=== PATIENT | female | born 1990 | race Caucasian/White ===

== ENCOUNTER → 2024-06-23 11:29 | Outpatient (REF) | payer MEDICARE, OTHER, SELFPAY | LOC: HWRAD 11:29 | PROVIDERS: ATTENDING PHYSICIAN Internal Medicine Endocrinology, Diabetes & Metabolism; FAMILY PHYSICIAN Family Medicine; OTHER PHYSICIAN Psychiatry & Neurology Sleep Medicine | DX: M85.88 Other specified disorders of bone density and structure, other site (principal) | CPT/HCPCS: 77080 ==

== ENCOUNTER 2024-10-17 11:07 | Emergency (ER) | payer MEDICARE, OTHER, SELFPAY ==
[2024-10-17 11:22] VITALS: BP 154/98
[2024-10-17 12:02] LABS: % Basophils 0.6 % (0-2); % Eosinophils 0.7 % (0-6); % Immature Granulocytes 0.3 % (0-0.5); % Neutrophils 68.4 % (42.2-75.2); Absolute Eosinophils 0.1 10^3/uL (0-0.7); Absolute Lymphocytes 1.6 10^3/uL (1.2-3.4); Absolute Monocytes 0.4 10^3/uL (0.1-0.6); Absolute Neutrophils 4.6 10^3/uL (1.4-6.5); Hematocrit 40.5 % (37.0-47.0); Hemoglobin 13.1 g/dL (12.0-16.0); Mean Corp Hgb Conc. 32.3 g/dL (33.0-37.0); Mean Corpuscular Hgb 25.6 pg (27.0-31.0); Mean Corpuscular Volume 79.1 fL (81.0-99.0); Nucleated Red Blood Cells % 0 %; Platelet Count 239 10^3/uL (130-400); Red Blood Cell Count 5.12 10^6/uL (4.20-5.40); Red Cell Dist. Width 13.3 % (11.5-14.5); White Blood Cell Count 6.7 10^3/uL (4.8-10.8)
[2024-10-17 12:07] LABS: Urine Albumin 2+ (Neg - Trace); Urine Bilirubin Negative (Negative); Urine Color Yellow; Urine Glucose Negative (Negative); Urine Ketone Trace (Negative); Urine Leukocyte Trace (Negative); Urine Nitrite Negative (Negative); Urine Occult Blood 1+ (Negative); Urine Specific Gravity 1.015 (<1.030); Urine Urobilinogen Negative (Neg - 1+)
[2024-10-17 12:13] LABS: Urine Character Slightly Cloudy (Clear)
[2024-10-17 12:14] LABS: HCG, Serum Qualitative Screen Negative
[2024-10-17 12:20] LABS: ALT (SGPT) 24 U/L (0-35); AST (SGOT) 27 U/L (14-36); Albumin 4.9 g/dl (3.5-5.0); Alkaline Phosphatase 113 U/L (38-126); Blood Urea Nitrogen 11 mg/dl (7-17); Calcium 9.7 mg/dl (8.4-10.2); Carbon Dioxide 24 mmol/L (22-30); Chloride 102 mmol/L (98-107); Glucose 107 mg/dl (70-99); Sodium 140 mmol/L (135-145); Total Bilirubin 0.4 mg/dl (0.2-1.3); Total Protein 8.7 g/dl (6.3-8.2); eGFR > 60.00
[2024-10-17 12:35] LABS: Urine Amorphous Seen
[2024-10-17 12:36] LABS: Urine Hyaline Cast 0-2 /LPF (0-2)
[2024-10-17 12:37] LABS: Urine Red Blood Cell 0-2 /HPF (0-2); Urine White Cell 0-2 /HPF (0-5)
[2024-10-17 12:51] LABS: Lipase 118 U/L (23-300)
[2024-10-17 13:30] VITALS: BP 128/89
[2024-10-17] MEDS: NSS 1000 IV (14:33)
[2024-10-17] MEDS: ZOFRAN 4 MG IV (14:34)
[2024-10-17] MEDS: TORADOL 30 MG IV (14:34)
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
[2024-10-17] MEDS: FLOMAX 0.4 MG PO (17:04)
[2024-10-17 17:39] VITALS: BP 137/85
== END 2024-10-17 17:42 | disposition home or self-care (01) ==
LOC: EMR 11:07
PROVIDERS: Emergency Medicine; EMERGENCY PHYSICIAN Emergency Medicine; FAMILY PHYSICIAN Family Medicine
DX: N20.1 Calculus of ureter (principal); R10.32 Left lower quadrant pain; R11.2 Nausea with vomiting, unspecified; R31.29 Other microscopic hematuria; F79 Unspecified intellectual disabilities; G82.20 Paraplegia, unspecified; R56.9 Unspecified convulsions; G81.91 Hemiplegia, unspecified affecting right dominant side; Z87.820 Personal history of traumatic brain injury; Z87.442 Personal history of urinary calculi; Z88.8 Allergy status to other drugs, medicaments and biological substances; Z91.018 Allergy to other foods
CPT/HCPCS: 99284; 96374; 96375; 96361; 74176; 80053; 81003; 81015; 83690; 84703; 85025

== ENCOUNTER 2025-08-19 12:25 | Emergency (ER) | payer MEDICARE, OTHER, SELFPAY ==
[2025-08-19 12:31] VITALS: BP 147/100
[2025-08-19 15:49] VITALS: BMI 36.0
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
== END 2025-08-19 16:24 | disposition home or self-care (01) ==
LOC: EMR 12:25
PROVIDERS: EMERGENCY PHYSICIAN Student in an Organized Health Care Education/Training Program; FAMILY PHYSICIAN Family Medicine
DX: S90.112A Contusion of left great toe without damage to nail, initial encounter (principal); W55.12XA Struck by horse, initial encounter; E06.3 Autoimmune thyroiditis; F32.A Depression, unspecified; F41.9 Anxiety disorder, unspecified; G40.909 Epilepsy, unspecified, not intractable, without status epilepticus; G81.91 Hemiplegia, unspecified affecting right dominant side; J45.909 Unspecified asthma, uncomplicated; D64.9 Anemia, unspecified; Z87.820 Personal history of traumatic brain injury; Z87.442 Personal history of urinary calculi; Z88.1 Allergy status to other antibiotic agents; Z88.8 Allergy status to other drugs, medicaments and biological substances; Z91.018 Allergy to other foods
CPT/HCPCS: 99283; 73660

== ENCOUNTER → 2025-08-24 10:19 | Outpatient (REF) | payer MEDICARE, OTHER, SELFPAY | LOC: RAD 10:19 | PROVIDERS: ATTENDING PHYSICIAN Specialist; FAMILY PHYSICIAN Family Medicine; REFERRING PHYSICIAN Internal Medicine Endocrinology, Diabetes & Metabolism | DX: N20.0 Calculus of kidney (principal) | CPT/HCPCS: 74018 ==